=== PATIENT | male | born 1935 | race Caucasian/White ===

== ENCOUNTER → 2018-09-26 | Outpatient (CLI) | payer MEDICARE, BC ==
[~2018-09-26] MED LIST: ACETAMINOPHEN325 M1 PO; ADULT LOW DOSE81 MG PO; AZOPT OPHTH1 %/10 M1 OPHTHALMIC; CELEXA 20 MG TA20 M1 PO; CELEXA 20 MG TA20 MG PO; CLOPIDOGREL75 MG PO; DULERA 100 MCG/13 GM INH; FINASTERIDE5 MG PO; FLUTICASONE NASAL; FUROSEMIDE 20 M20 M1 PO; HYDROCODONE-AP1 EAC6 PO; KLOR-CON 1010 MEQ PO; KLOR-CON PO; LATANOPROST 0.2.5 ML OPHTHALMIC; LIPITOR40 MG PO; METAMUCIL PO; NORVASC10 MG PO; OCUVITE TABLET1 EAC1 PO; PROAIR HFA8.5 GM INH; PYRIDIUM200 M2 PO; STOOL SOFTENER1 EAC2 PO; TAMSULOSIN HCL0.4 M1 PO; TOPROL XL25 MG PO; VISION PLUS LU1 EACH PO
== END ==
LOC: M.RAD 10:24
DX: R13.11 Dysphagia, oral phase (principal)

== ENCOUNTER → 2019-10-13 | Outpatient (CLI) | payer MEDICARE, BC ==
[2019-10-13 11:03] LABS: CALCIUM 8.6 mg/dL (8.5-10.1); CREATININE 0.9 mg/dL (0.6-1.3); POTASSIUM 4.4 mmol/L (3.5-5.1)
== END ==
LOC: M.LAB 10:23
PROVIDERS: Nurse Practitioner
DX: I10 Essential (primary) hypertension (principal)